=== PATIENT | female | born 1970 | race Two or more races ===

== ENCOUNTER 2020-09-16 19:42 | Emergency (ER) | payer OTHER ==
[2020-09-16 20:32] VITALS: BP 122/72; PULSE 80; TEMP 98.6; BMI 33.3
[2020-09-16] MEDS ORDERED: KETOROLAC TROMETHAMINE 60 MG/2 ML VIAL IM ONE (20:36)
[2020-09-16] MEDS ORDERED: CYCLOBENZAPRINE HCL 5 MG TABLET PO SCH (20:45)
[2020-09-16] MEDS ORDERED: KETOROLAC TROMETHAMINE 60 MG/2 ML VIAL ONE (20:47)
[2020-09-16] MEDS ORDERED: CYCLOBENZAPRINE HCL 10 MG TABLET (FP) ONE (20:47)
== END 2020-09-17 01:08 | disposition home or self-care (01) ==
LOC: FER 19:42
PROC: 3E0233Z Introduction of Anti-inflammatory into Muscle, Percutaneous Approach (ICD-10-PCS; principal; 2020-09-16)
DX: M54.6 Pain in thoracic spine (principal)
CPT/HCPCS: 73030-TC-LT-FY; 73030-TC-RT-FY; 99284-25

== ENCOUNTER 2021-09-02 18:20 | Emergency (ER) | payer OTHER ==
[2021-09-02 18:42] VITALS: BP 119/74; PULSE 70; TEMP 98.2; BMI 33.3
== END 2021-09-02 19:40 | disposition home or self-care (01) ==
LOC: FER 18:20
DX: G47.00 Insomnia, unspecified (principal)
CPT/HCPCS: 99281-25